=== PATIENT | male | born 1980 | race Caucasian/White ===

== ENCOUNTER 2021-09-11 17:17 | Emergency (ER) | payer OTHER ==
[2021-09-11] MEDS ORDERED: HYDROMORPHONE HCL 1 MG/ML INJ ONE (17:27)
[2021-09-11] MEDS ORDERED: MORPHINE 4 MG/ML SYR ONE (17:27)
[2021-09-11] MEDS ORDERED: ONDANSETRON 4 MG/2 ML VIAL ONE (17:27)
[2021-09-11 17:40] LABS: Absolute Lymphocytes (CBC) 2.2 K/uL (0.7-4.9); Lymphocytes % 22.4 % (15.3-44.8); MCV 90.8 fL (80-100); MPV 7.6 fL (7.6-11.3); RBC Red Blood Cell Count 5.61 M/uL (4.33-5.43)
[2021-09-11 17:48] LABS: Potassium 3.6 mmol/L (3.5-5.1)
[2021-09-11] MEDS ORDERED: FENTANYL CITR 100 MCG/2 ML ONE (17:52)
--- NOTE | 2021-09-11 17:59 | RAD REPORT ---
EXAM DESCRIPTION: CT - Head C Spine Cap [place] - 09/11/2021 5:40 pm CLINICAL HISTORY: Back Pain COMPARISON: No comparisons TECHNIQUE: Axial [address] head images were obtained. Axial [address] cervical spine images were obtaine d with sagittal and coronal reconstruction images reviewed. During dynamic enhancement of 100mL non-i onic contrast, axial 5 mm images of the chest, abdomen and pelvis were obtained. Biphasic technique p erformed of the abdomen and pelvis. All CT scans are performed using dose optimization technique as appropriate and may include automated exposure control or mA/KV adjustment according to patient size. FINDINGS: No intracranial hemorrhage, mass or edema. No midline shift or abnormal fluid collection. Ventricles are normal. No globe or orbital content abnormality. Mastoid air cells and paranasal sinus es are clear. No skull fracture. Facial bones are only partially imaged. Appears be remodeling from old nasal bone fracture. CT cervical spine imaging shows normal height. Normal alignment of the vertebrae. No disc space narro wing. No paraspinal mass or hematoma seen. Central canal detail is inherently limited. Accurate evalu ation of protruding disc cannot be made on this study. Concerns for traumatic disc herniation or trau matic cord injury can be further addressed with MR imaging. CT chest shows no pneumothorax, pulmonary contusion or pleural fluid collection. No mediastinal hemat gerald and the aorta and pulmonary arteries are unremarkable. No chest will mass or abnormal axillary fi nding. No displaced rib fracture. CT abdomen and pelvis show no injury to solid abdominal viscera. Gallbladder and biliary tree are unr emarkable. No bowel injury or significant finding. No free air, free fluid or abnormal stranding. No urinary bladder abnormality. No peritoneal or retroperitoneal hematoma. No proximal femur or bony pelvic fracture identified. L1 burst fracture is present. Vertebral body has lost approximately 50% in height. There is retropuls ion of the posterior wall into the central canal causing spinal stenosis to 7 mm. There is a suspecte d nondisplaced fracture of the right L1 lamina. Facet joint alignment is maintained. No transverse pr ocess or spinous process fracture present. IMPRESSION: No hemorrhage, edema or acute CT Head finding. No significant CT Cervical Spine finding. No significant CT Chest finding. No acute injury to the soft tissues of the abdomen or pelvis. L1 burst fracture with 50% loss in height and posterior wall retropulsion causing spinal stenosis to 7 mm.
[2021-09-11] MEDS ORDERED: DIAZEPAM 10 MG/2 ML INJ SYRINGE ONE ×2 (18:41→19:00)
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
[2021-09-11] MEDS ORDERED: dexAMETHasone 10 MG/ML VIAL ONE (19:00)
[2021-09-11 19:27] VITALS: TEMP 97.4
[2021-09-11 19:31] VITALS: BP 144/85; O2SAT 95
== END 2021-09-11 19:22 | disposition short-term general hospital (02) ==
LOC: ER 17:17
DX: S32.011A Stable burst fracture of first lumbar vertebra, initial encounter for closed fracture (principal); Z20.822 Contact with and (suspected) exposure to COVID-19
CPT/HCPCS: 85025; 80048; 36415; 80320; 70450; 72125; 71260; 74177; 96375; 96374; 99285; U0003; Q9967; J3360 ×2; J3010; J1100; J1170; J2405